=== PATIENT | female | born 1975 | race Caucasian/White ===

== ENCOUNTER 2022-10-25 06:28 | Day surgery (SDC) | payer MEDICAID ==
[~2022-10-25] VITALS: Ht 160 cm; Wt 115.7 kg
[2022-10-25 07:14] LABS: HCG,QUAL RESULT NEGATIVE (NEGATIVE)
[2022-10-25] MEDS: MEPERIDINE 100 MG INJ. 100 MG/ML VIAL ONE ×2 (07:59→08:01)
[2022-10-25] MEDS: MIDAZOLAM HCL 5 MG/5 ML VIAL ONE ×3 (07:59→08:13)
[2022-10-25 09:34] VITALS: BP_SYST 107
== END 2022-10-25 09:00 | disposition home or self-care (01) ==
LOC: SDS 06:28 → SMU 06:28 → SDS 09:00
PROVIDERS: ATTEND Internal Medicine Gastroenterology
DX: Z12.11 Encounter for screening for malignant neoplasm of colon (principal); K63.5 Polyp of colon; K29.50 Unspecified chronic gastritis without bleeding; K29.80 Duodenitis without bleeding; K57.30 Diverticulosis of large intestine without perforation or abscess without bleeding; R14.0 Abdominal distension (gaseous); K21.9 Gastro-esophageal reflux disease without esophagitis; K63.3 Ulcer of intestine; Z90.49 Acquired absence of other specified parts of digestive tract; Z79.899 Other long term (current) drug therapy
CPT/HCPCS: 45380; 43239; 84703; 88305; 88312; 88313; 99153; 99152; G0378; J2250; J2175